=== PATIENT | female | born 1955 | race Caucasian/White ===

== ENCOUNTER 2018-11-16 15:55 | Observation (INO) ==
[2018-11-16] MEDS ORDERED: FUROSEMIDE 100 MG/10 ML VIAL IV STA (16:42)
[2018-11-16 17:31] LABS: Basophils # 0.1 10*3/uL (0.0-0.2); Basophils % 0.5 % (0.0-0.8); Eosinophils # 0.2 10*3/uL (0.0-0.87); Eosinophils % 2.2 % (0.00-10.9); Hematocrit 49.3 VOL% (35.7-47.0); Hemoglobin 15.8 GM/DL (12.0-16.0); Immature Granulocytes % 0.4 %; Immature Granulocytes Absolute 0.04 #; Lymphocytes # 1.3 10*3/uL (1.4-4.0); Lymphocytes % 13.8 % (21.3-54.2); Mean Corpuscular Volume 90.1 FL (87-102); Mean Platelet Volume 9.7 FL (9.6-12.0); Monocytes % 9.7 % (1.7-12.7); Neutrophils % 73.4 % (38.7-73.9); Platelet Count 279 T/CUMM (130-400); Red Blood Count 5.47 MC/CUMM (3.8-5.5); Red Cell Distribution Width 12.8 % (9.3-17.3); White Blood Count 9.6 T/CUMM (4-12)
[2018-11-16 17:33] LABS: Albumin 3.8 G/DL (3.4-5.0); Bilirubin,Total 0.5 MG/DL (0.2-1.0); Calcium 9.5 MG/DL (8.5-10.1); Total Protein 8.2 G/DL (6.4-8.3)
[2018-11-16 17:38] LABS: Apearance,Urine CLEAR (Clear); Bilirubin,Urine Negative (Negative); Blood, Urine Negative (Negative); Glucose,Urine (UA) Negative (Negative); Ketones,Urine Negative (Negative); Mucus,Urine Occasional /LPF (Occasional); Nitrite,Urine Negative (Negative); Protein,Urine Negative; RBC,Urine 5 /HPF (0-4); Squamous Epithelial Cell,Urine Occasional /HPF (0-10); Urine Color Yellow (Yellow); Urine Specific Gravity 1.023 (1.001-1.035); Urine Urobilinogen < 2.0 EU/DL (0.2-1.0); WBC,Urine 10 /HPF (0-6)
[2018-11-16] MEDS ORDERED: cefTRIAXone 1,000 MG in SODIUM CHLORIDE 0.9% 100 ML IV STA (19:29)
[2018-11-16] MEDS: ENOXAPARIN 40 MG/0.4 ML SYRINGE SUBCUT SCH (22:52)
[2018-11-16] MEDS: LABETALOL 20 MG/4 ML SYRINGE IV PRN (23:27)
[2018-11-17 05:24] LABS: Osmolality,Calculated 276.8 MOS/KG (273-304)
[2018-11-17 05:36] LABS: Risk Ratio 4.95; VLDL CHOLESTEROL 27.6 MG/DL
[2018-11-17] MEDS: MELOXICAM 7.5 MG TABLET PO SCH (08:32)
[2018-11-17] MEDS: DULoxetine 30 MG CAPSULE PO SCH (08:32)
[2018-11-17] MEDS: PANTOPRAZOLE 40 MG TABLET PO SCH (08:32)
[2018-11-17] MEDS: buPROPion XL 150 MG TABLET PO SCH (08:32)
[2018-11-17] MEDS ORDERED: ONDANSETRON 4 MG/2 ML VIAL IV PRN (10:22)
[2018-11-17] MEDS: DIAZEPAM 2 MG TABLET PO PRN ×2 (16:43→21:36)
[2018-11-17] MEDS ORDERED: cefTRIAXone 1,000 MG in SYRINGE 1 EACH IV SCH (20:00)
[2018-11-17] MEDS ORDERED: BISACODYL 5 MG TABLET PO ONE (21:03)
[2018-11-17] MEDS: ENOXAPARIN 40 MG/0.4 ML SYRINGE SUBCUT SCH (21:34)
[2018-11-18 04:52] LABS: Basophils # 0.1 10*3/uL (0.0-0.2); Basophils % 0.9 % (0.0-0.8); Eosinophils # 0.3 10*3/uL (0.0-0.87); Eosinophils % 3.3 % (0.00-10.9); Hematocrit 50.7 VOL% (35.7-47.0); Hemoglobin 15.6 GM/DL (12.0-16.0); Immature Granulocytes % 0.4 %; Immature Granulocytes Absolute 0.03 #; Lymphocytes % 25.8 % (21.3-54.2); Mean Corpuscular HGB Conc 30.8 GM/DL (32-36); Mean Corpuscular Volume 91.2 FL (87-102); Monocytes % 12.6 % (1.7-12.7); Platelet Count 305 T/CUMM (130-400); Red Blood Count 5.56 MC/CUMM (3.8-5.5); Red Cell Distribution Width 12.8 % (9.3-17.3); White Blood Count 7.9 T/CUMM (4-12)
[2018-11-18 05:17] LABS: Calcium 9.3 MG/DL (8.5-10.1); Osmolality,Calculated 277.8 MOS/KG (273-304)
[2018-11-18] MEDS: DULoxetine 30 MG CAPSULE PO SCH (08:51)
[2018-11-18] MEDS: MELOXICAM 7.5 MG TABLET PO SCH (08:52)
[2018-11-18] MEDS: PANTOPRAZOLE 40 MG TABLET PO SCH (08:52)
[2018-11-18] MEDS: buPROPion XL 150 MG TABLET PO SCH (08:52)
[2018-11-18] MEDS ORDERED: NITROFURANTOIN MACRO/MONO 100 MG CAPSULE PO SCH (10:30)
[2018-11-18] MEDS: LABETALOL 20 MG/4 ML SYRINGE IV PRN (12:15)
[2018-11-18] MEDS: DIAZEPAM 2 MG TABLET PO PRN ×2 (12:20→22:10)
[2018-11-18] MEDS ORDERED: LABETALOL 100 MG/20 ML VIAL IV PRN (15:12)
[2018-11-18] MEDS: AMPICILLIN 500 MG CAPSULE PO SCH ×2 (16:44→22:09)
[2018-11-18] MEDS: ENOXAPARIN 40 MG/0.4 ML SYRINGE SUBCUT SCH (22:09)
[2018-11-19 04:53] LABS: Basophils % 0.6 % (0.0-0.8); Eosinophils # 0.3 10*3/uL (0.0-0.87); Eosinophils % 4.1 % (0.00-10.9); Hematocrit 45.9 VOL% (35.7-47.0); Hemoglobin 14.5 GM/DL (12.0-16.0); Immature Granulocytes % 0.5 %; Immature Granulocytes Absolute 0.03 #; Lymphocytes # 1.9 10*3/uL (1.4-4.0); Lymphocytes % 29.6 % (21.3-54.2); Mean Corpuscular HGB Conc 31.6 GM/DL (32-36); Mean Corpuscular Volume 90.9 FL (87-102); Monocytes % 12.5 % (1.7-12.7); Neutrophils % 52.7 % (38.7-73.9); Platelet Count 254 T/CUMM (130-400); Red Blood Count 5.05 MC/CUMM (3.8-5.5); Red Cell Distribution Width 12.8 % (9.3-17.3); White Blood Count 6.6 T/CUMM (4-12)
[2018-11-19 05:22] LABS: Calcium 9.2 MG/DL (8.5-10.1); Osmolality,Calculated 279.7 MOS/KG (273-304)
[2018-11-19] MEDS: DIAZEPAM 2 MG TABLET PO PRN (07:48)
[2018-11-19] MEDS: PANTOPRAZOLE 40 MG TABLET PO SCH (08:55)
[2018-11-19] MEDS: MELOXICAM 7.5 MG TABLET PO SCH (08:56)
[2018-11-19] MEDS: buPROPion XL 150 MG TABLET PO SCH (08:56)
[2018-11-19] MEDS: AMPICILLIN 500 MG CAPSULE PO SCH ×3 (08:56→17:05)
[2018-11-19] MEDS: DULoxetine 30 MG CAPSULE PO SCH (09:02)
[2018-11-19 16:51] VITALS: BP 130/90
== END 2018-11-19 17:34 | disposition home or self-care (01) ==
LOC: N.ED 15:55 → N.EDINP 15:55 → N.4E 22:00
PROVIDERS: ADMIT Internal Medicine; ATTEND Internal Medicine